=== PATIENT | male | born 1990 | race Caucasian/White ===

== ENCOUNTER 2021-06-16 22:44 | Emergency (ER) | payer MEDICAID ==
[~2021-06-16] VITALS: Ht 170.2 cm; Wt 1154.0 kg
[2021-06-16 23:19] VITALS: BP 184/105
== END 2021-06-17 01:37 | disposition home or self-care (01) ==
LOC: ER 22:44
DX: Z48.00 Encounter for change or removal of nonsurgical wound dressing (principal); R03.0 Elevated blood-pressure reading, without diagnosis of hypertension
CPT/HCPCS: 99282